=== PATIENT | male | born 2000 | race Caucasian/White ===

== ENCOUNTER 2025-03-31 07:55 | Emergency (ER) | payer OTHER, SELFPAY ==
[2025-03-31 08:03] VITALS: BP 135/88; PULSE 80; RESP 16; TEMP 36.8; O2SAT 99; BMI 28.3
--- NOTE | 2025-03-31 08:31 | ED.ALLEREA ---
HPI - Allergic Reaction General Chief complaint: Allergic Reaction Stated complaint: Allergic Reaction Meds he was given from Doctor Time Seen by Provider: 03/31/25 08:13 Source: patient Mode of arrival: Ambulatory History of Present Illness HPI narrative: 25-year-old male with history of low back pain took his first dose of meloxicam 2 days ago, yesterday had eye swelling and itching, no further doses of meloxicam. He has taken ibuprofen in the past without problems. No symptoms of airway closure, throat tightness, no difficulty breathing, no rash or hives, no swelling of tongue or lips. He has taken Benadryl, last dose last night. No other medications taken. Denies itching or hives or rash to skin of extremities and neck and trunk front and back. Related Data Previous Rx's Medication Instructions Recorded diphenhydramine HCl 50 mg tablet 50 mg PO QID #20 tabs 03/31/25 epinephrine 0.3 mg/0.3 mL 0.3 mg (0.3 mL) IM Q5-15M PRN 03/31/25 injection, auto-injector (EpiPen) anaphylaxis #2 ea prednisone 20 mg tablet 40 mg (2 x 20 mg) PO DAILY 5 days 03/31/25 #10 tabs Allergies Allergy/AdvReac Type Severity Reaction Status Date / Time meloxicam Allergy Unknown Swelling Verified 03/31/25 13:17 of the Eye Patient History Social History Smoking Status: Never smoker Smoking Status: Never smoker Exam Narrative Exam Narrative: GENERAL: Well-developed patient, in mild distress. HEAD: Atraumatic. Normocephalic. EYES: Pupils equal round and reactive. Extraocular motions intact. No scleral icterus. No injection or drainage. Some bilateral periorbital swelling. ENT: Nose without bleeding, purulent drainage. Throat without erythema, tonsillar hypertrophy or exudate. Airway patent. No swelling lips or tongue. NECK: Trachea midline. Non tender CARDIOVASCULAR: Regular rate and rhythm without murmurs, gallops, or rubs. RESPIRATORY: Clear to auscultation. Breath sounds equal bilaterally. No wheezes, rales, or rhonchi. GASTROINTESTINAL: Abdomen soft, non-tender, nondistended. EXTREMITIES: No edema or joint tenderness. BACK: Nontender without deformity or crepitance. No flank tenderness. NEURO: AOx3. Motor functions grossly nonfocal. SKIN: No rash or erythema of visible areas Initial Vital Signs Initial Vital Signs: Vital Signs Temperature 98.3 F 03/31/25 08:03 Pulse Rate 80 03/31/25 08:03 Respiratory Rate 16 03/31/25 08:03 Blood Pressure 135/88 03/31/25 08:03 Pulse Oximetry 99 03/31/25 08:03 Oxygen Delivery Method Room Air 03/31/25 08:03 Course Orders Ordered: Discontinued Medications Diphenhydramine HCl (Diphenhydramine 25 Mg Tablet) 50 mg PO NOW ONE Stop: 03/31/25 08:47 Last Admin: 03/31/25 09:22 Dose: 50 mg Documented By: SULLY Prednisone (Prednisone 20 Mg Tablet) 60 mg PO NOW ONE Stop: 03/31/25 08:47 Last Admin: 03/31/25 09:22 Dose: 60 mg Documented By: SULLY Vital Signs Vital signs: Vital Signs - 8 hr 03/31/25 08:03 03/31/25 09:07 03/31/25 10:24 Temperature 98.3 F Pulse Rate 80 58 L 64 Respiratory Rate 16 Blood Pressure 135/88 Pulse Oximetry 99 98 100 Oxygen Delivery Method Room Air Room Air MDM - Allergic Reaction MDM Narrative Medical decision making narrative: 25-year-old male with likely allergic reaction to new dose in meloxicam medication taken for low back pain 2 days ago, periorbital redness and swelling. No angioedema changes to the lips or tongue. Lungs clear. No oxygen requirement. No throat tightening symptoms. No GI symptoms. Afebrile, sirs screen negative, normotensive, without tachycardia. We will give oral prednisone and oral Benadryl. We will send prescriptions to his pharmacy at [facility], consider also EpiPen. Advised to discontinue and avoid meloxicam medication. Patient feels better after oral meds. Further prescription prednisone and Benadryl for the next 5 days sent to his pharmacy, also EpiPen autoinjector to his pharmacy. Discharged home with family. Return precautions discussed. Discharge Plan Departure Patient Disposition: Home Clinical Impression: Allergic reaction Activity Restrictions/Additional Instructions: Likely allergic reaction to new meloxicam medication, with swelling around both eyes, no direct eye trauma known. No shortness of breath or oxygen requirement, lungs clear on examination, no hives obvious on other skin areas. No swelling of lips or tongue. Oral prednisone and oral Benadryl given. Prescriptions for further prednisone and Benadryl sent to your pharmacy. Also epinephrine injectable autoinjector given in case you have a very severe reaction remote from care in the future. Avoid meloxicam for now, and list this as a medication allergy. Recheck with your regular prescribing doctor, to query about replacement medications for meloxicam. Consider Tylenol for back pain for now. Recheck earlier this/nearest emergency department for any change worsening symptoms or any concerns prior. Prescriptions: New prednisone 20 mg tablet 40 mg PO DAILY 5 Days Qty: 10 0RF diphenhydramine HCl 50 mg tablet 50 mg PO QID Qty: 20 0RF epinephrine [EpiPen] 0.3 mg/0.3 mL auto-injector 0.3 mg IM Q5-15M PRN (Reason: anaphylaxis) Qty: 2 0RF Rx Instructions: do not exceed 3 doses per episode Referrals: ProviderBecca [Primary Care Provider] - Stand Alone Forms: Patient Portal/API/Survey
[2025-03-31 09:07] VITALS: PULSE 58; O2SAT 98
[2025-03-31] MEDS: diphenhydrAMINE 25 MG TABLET 50 MG PO (09:22)
[2025-03-31] MEDS: predniSONE 20 MG TABLET 60 MG PO (09:22)
[2025-03-31 10:24] VITALS: PULSE 64; O2SAT 100
[2025-03-31 10:43] VITALS: BP 125/77; PULSE 60; RESP 14; O2SAT 99
--- NOTE | 2025-03-31 13:15 | PC.NURSE ---
Pt reports no difficulty managing secretions or swallowing. Pt eyes noted to be red around eye and inflammed. Pt reports taking meloxicam for the first time with reaction.
== END 2025-03-31 10:55 | disposition home or self-care (01) ==
PROVIDERS: Emergency Provider Emergency Medicine
DX: T78.40XA Allergy, unspecified, initial encounter (principal); M54.50 Low back pain, unspecified
CPT/HCPCS: 99283